=== PATIENT | female | born 1990 | race Caucasian/White ===

== ENCOUNTER 2021-11-26 10:56 | Outpatient (CLI) | payer SELFPAY ==
[2021-11-26 22:04] LABS: Cholesterol* 215 mg/dL (90-199); Triglycerides* 88 mg/dL (40-149)
[2021-11-26 22:05] LABS: HDL Cholesterol* 76 mg/dL (>=50); LDL Cholesterol Calculated 121 mg/dL (<100)
[2021-11-26 22:22] LABS: Vitamin D 25 Hydroxy* 54 ng/mL (30-80)
[2021-11-26 23:55] LABS: Free T4 Free Thyroxine* 0.94 ng/dL (0.70-1.85)
[2021-11-27 00:06] LABS: Glucose* 85 mg/dL (60-115)
[2021-11-29 22:49] LABS: Prolactin 10.5 ng/mL (2.8-29.2)
== END 2021-11-26 10:57 | disposition home or self-care (01) ==
PROVIDERS: Visit Provider Registered Nurse
DX: Z01.419 Encounter for gynecological examination (general) (routine) without abnormal findings (principal); R53.83 Other fatigue; N64.3 Galactorrhea not associated with childbirth; R51.9 Headache, unspecified; N93.9 Abnormal uterine and vaginal bleeding, unspecified
CPT/HCPCS: 80061; 82306; 82947; 84146; 84439; 84443

== ENCOUNTER 2022-01-05 08:29 | Outpatient (CLI) | payer SELFPAY ==
[2022-01-05 20:59] LABS: Free T4 Free Thyroxine* 1.08 ng/dL (0.70-1.85)
== END 2022-01-05 08:30 | disposition home or self-care (01) ==
LOC: NFLDREF 08:29
PROVIDERS: Visit Provider Obstetrics & Gynecology
DX: E03.9 Hypothyroidism, unspecified (principal)
CPT/HCPCS: 84439; 84443

== ENCOUNTER 2022-02-02 09:21 | Outpatient (CLI) | payer SELFPAY | END 2022-02-02 09:22 | disposition home or self-care (01) | PROVIDERS: Visit Provider Registered Nurse | DX: E03.9 Hypothyroidism, unspecified (principal) | CPT/HCPCS: 84443 ==

== ENCOUNTER 2023-02-02 13:40 | Outpatient (CLI) | payer OTHER, SELFPAY | END 2023-02-02 13:41 | disposition home or self-care (01) | LOC: FRMREF 13:40 | PROVIDERS: Visit Provider Advanced Practice Midwife | DX: Z01.419 Encounter for gynecological examination (general) (routine) without abnormal findings (principal); E03.9 Hypothyroidism, unspecified; R53.83 Other fatigue | CPT/HCPCS: 84443 ==

== ENCOUNTER 2023-11-07 15:32 | Outpatient (CLI) | payer OTHER, SELFPAY | END 2023-11-07 15:33 | disposition home or self-care (01) | PROVIDERS: Visit Provider Family Medicine | DX: E03.9 Hypothyroidism, unspecified (principal); R53.83 Other fatigue; R42 Dizziness and giddiness; G43.909 Migraine, unspecified, not intractable, without status migrainosus | CPT/HCPCS: 80053; 83516; 84439; 84443 ==

== ENCOUNTER 2024-02-20 14:23 | Outpatient (CLI) | payer OTHER, SELFPAY | END 2024-02-20 14:24 | disposition home or self-care (01) | LOC: NFLDREF 14:24 | PROVIDERS: Visit Provider Family Medicine | DX: E03.9 Hypothyroidism, unspecified (principal) | CPT/HCPCS: 84443 ==

== ENCOUNTER 2024-03-05 09:57 | Outpatient (CLI) | payer OTHER, SELFPAY | END 2024-03-05 09:58 | disposition home or self-care (01) | PROVIDERS: Visit Provider Family Medicine | DX: R53.83 Other fatigue (principal) | CPT/HCPCS: 86038 ==

== ENCOUNTER 2024-05-29 14:32 | Outpatient (CLI) | payer OTHER, SELFPAY | END 2024-05-29 14:33 | disposition home or self-care (01) | LOC: NFLDREF 05-30 02:42 | PROVIDERS: PCP Family Medicine; Referring Provider Family Medicine; Visit Provider Family Medicine | DX: R53.83 Other fatigue (principal); R42 Dizziness and giddiness | CPT/HCPCS: 82607; 82947; 82950; 84207; 86618 ==

== ENCOUNTER 2024-12-06 16:03 | Outpatient (CLI) | payer SELFPAY | END 2024-12-06 16:04 | disposition home or self-care (01) | LOC: LKVREF 16:04 | PROVIDERS: PCP Family Medicine; Visit Provider Family Medicine | DX: E03.9 Hypothyroidism, unspecified (principal) | CPT/HCPCS: 84443 ==

== ENCOUNTER 2025-01-06 10:47 | Outpatient (CLI) | payer SELFPAY ==
[2025-01-10 14:27] LABS: HSV 1 Subtype by PCR Not Detected; HSV 2 Subtype by PCR Not Detected; Herpes Simplex Subtype Source Tissue
== END 2025-01-06 10:48 | disposition home or self-care (01) ==
LOC: LKVREF 10:48
PROVIDERS: PCP Family Medicine; Visit Provider Nurse Practitioner Family
DX: N89.8 Other specified noninflammatory disorders of vagina (principal)
CPT/HCPCS: 87529

== ENCOUNTER 2025-01-10 10:13 | Outpatient (CLI) | payer SELFPAY ==
[2025-01-10 12:19] LABS: Bacterial Vaginosis* Negative (Negative); Candida glab/krus NOT DETECTED (No Detected)
== END 2025-01-10 10:14 | disposition home or self-care (01) ==
LOC: NFLDREF 10:13
PROVIDERS: PCP Family Medicine; Visit Provider Advanced Practice Midwife
DX: N89.8 Other specified noninflammatory disorders of vagina (principal)
CPT/HCPCS: 81513; 87481; 87661